=== PATIENT | male | born 1995 | race Caucasian/White ===

== ENCOUNTER 2024-04-11 17:20 | Emergency (ER) | payer SELFPAY ==
[2024-04-11 17:36] VITALS: BP 114/71; PULSE 99; RESP 20; TEMP 37; O2SAT 94; BMI 35.2
--- NOTE | 2024-04-11 19:54 | ED_ITS ---
HPI - Animal Bite 2 General: Chief Complaint: Animal Bite Stated Complaint: Snake Bite Time Seen by Provider: 04/11/24 19:11 Source: patient Mode of arrival: ambulatory Limitations: no limitations History of Present Illness: Patient is a 28-year-old male presenting to the emergency department complaining of bruising to left butt cheek onset a few hours prior to arrival. Patient [place] to noticing the bruising, states he thinks he may have been bitten by something. He denies any pain to the area, however states that when he sits on it he feels a burning tingling sensation that radiates down his proximal right leg. States initially he was feeling dizzy, however this has resolved. No fever, nausea or vomiting, or other symptoms at this time. He denies any trauma to the area. States that he does not know what could have bit him. complaint: animal bite (Possible) Onset (ago): hour(s) Animal: other (Unknown) Location: buttocks Associated symptoms: Deny chills, fever(s) or headache(s) Related Data Previous Rx's Medication Instructions Recorded cephalexin 500 mg capsule 500 mg PO BID 7 days #14 caps 04/11/24 Allergies Allergy/AdvReac Type Severity Reaction Status Date / Time No Known Allergies Allergy Verified 04/11/24 17:47 Review of Systems 2 General: Reports: 10 or more systems reviewed and unremarkable except in HPI and below Const: Denies: fever(s) or chills Card: Denies: chest pain Resp: Denies: dyspnea GI: Denies: abdominal pain, nausea, vomiting or diarrhea Musc: Denies: extremity pain or joint pain Skin/Breast: Reports: skin pain (Burning/tingling) and other (Bruising to right buttock); Denies: rash, skin tenderness or new lesions Neuro: Reports: dizziness; Denies: headache(s) Physical Exam 2 Const: COMMON NORMALS: no acute distress, average body habitus, patient oriented x3, no limitations, healthy appearing, alert and well nourished HENMT: COMMON NORMALS: normocephalic and atraumatic HEAD & SCALP: n ormocephalic and atraumatic Neck/C-Spine: COMMON NORMALS: full ROM, no lymphadenopathy, supple and no meningeal signs Resp: COMMON NORMALS: normal respiratory effort, No use of accessory muscles and clear to auscultation bilaterally AUSCULTATION: clear to auscultation bilaterally Cardio: COMMON NORMALS: regular rate and regular rhythm RATE: regular rate RHYTHM: regular rhythm Extremity: COMMON NORMALS: full ROM and capillary refill normal Neuro: COMMON NORMALS: patient oriented x3 SENSORIUM/ORIENTATION: Yes alert MENINGEAL SIGNS: Yes no meningeal signs Skin: COMMON NORMALS: no rashes or lesions noted, no wounds and turgor normal NARRATIVE SKIN EXAM: Circumferential bruising to right buttock, no evidence of fang montgomery or bite lesion. Mild tenderness to the touch. Does not feel warm. GENERAL SKIN EXAM: no rashes or lesions noted and turgor normal Course 2 Vital Signs: Vital signs: Vital Signs Temperature 98.6 F 04/11/24 17:36 Pulse Rate 99 04/11/24 17:36 Respiratory Rate 20 H 04/11/24 17:36 Blood Pressure 114/71 04/11/24 17:36 Pulse Oximetry 94 04/11/24 17:36 Oxygen Delivery Me thod Room Air 04/11/24 17:36 MDM - Animal Bite Medical Decision Making Patient presented with a lesion to his right buttock that he noticed approximately 3 to 4 hours prior to presenting to the emergency department. He is unknown what caused it, unknown if trauma or animal bite. He has no fever, nausea or vomiting, or other systemic symptoms other than some intermittent dizziness that has since improved. His vitals on arrival were stable. Exam revealed what appeared to be traumatic bruising of the right buttock, there was no active drainage and no sign of things or other bite jammie. Labs were ordered which were all completely normal, and at patient's request we will treat with antibiotics empirically. He is informed to monitor the lesion and return with any new or concerning symptoms. Case discussed with Dr. Lubin who agrees at this time. Lab Data 04/11/24 19:53 04/11/24 19:53 Laboratory Results WBC 10.59 10^3/uL (3.29-11.43) 04/11/24 19:53 RBC 5.34 10^6/uL (3.85-5.65) 04/11/24 19:53 Hgb 14.90 g/dL (11.27-16.99) 04/11/24 19:53 Hct 45.2 % (37-53) 04/11/24 19:53 MCV 84.6 fl (82-101) 04/11/24 19:53 MCH 27.9 pg (27-33) 04/11/24 19:53 MCHC 33.0 g/dL (30-55) 04/11/24 19:53 RDW 12.5 % (12.1-15.1) 04/11/24 19:53 Plt Count 239 10^3/cmm (157-399) 04/11/24 19:53 MPV 10.8 fL (7.4-10.4) H 04/11/24 19:53 Neut % (Auto) 57.1 % 04/11/24 19:53 Lymph % (Auto) 32.2 % 04/11/24 19:53 [place] % (Auto) 8.9 % 04/11/24 19:53 Eos % (Auto) 1.2 % 04/11/24 19:53 Baso % (Auto) 0.3 % 04/11/24 19:53 Neut # (Auto) 6.05 10^3/uL (1.8-7.7) 04/11/24 19:53 Lymph # (Auto) 3.4 10^3/uL (0.8-4.8) 04/11/24 19:53 [place] # (Auto) 0.9 10^3/uL (0.2-0.9) 04/11/24 19:53 Eos # (Auto) 0.1 10^3/uL (0.0-0.8) 04/11/24 19:53 Baso # (Auto) 0.0 10^3/uL (0.0-0.1) 04/11/24 19:53 Nucleated RBC % (auto) 0 % 04/11/24 19:53 Nucleated RBCs # 0.0 /100WBC 04/11/24 19:53 ESR 1 mm/hr (0-10) 04/11/24 19:53 PT 12.40 SECONDS (12.1-14.9) 04/11/24 19:53 INR 0.90 (0.8-1.2) 04/11/24 19:53 APTT 27.3 SECONDS (23.9-36.7) 04/11/24 19:53 Sodium 140 mmol/L (136-145) 04/11/24 19:53 Potassium 4.7 mmol/L (3.5-5.1) 04/11/24 19:53 Chloride 102 mmol/L (98-107) 04/11/24 19:53 Carbon Dioxide 28 mmol/L (22-29) 04/11/24 19:53 Anion Gap 14.7 (5-19) 04/11/24 19:53 BUN 15 mg/dL (6-20) 04/11/24 19:53 Creatinine 0.9 mg/dL (0.7-1.2) 04/11/24 19:53 GFR Calculation 102.0 mL/min (90-130) 04/11/24 19:53 Glucose 98 mg/dL (65-115) 04/11/24 19:53 Calculated Osmolality 291 mOsm/kg (285-295) 04/11/24 19:53 Calcium 9.2 mg/dL (8.5-10.5) 04/11/24 19:53 Total Bilirubin 0.2 mg/dL (0.15-1.2) 04/11/24 19:53 AST 17 U/L (0-40) 04/11/24 19:53 ALT 21 U/L (0-41) 04/11/24 19:53 Alkaline Phosphatase 92 U/L (40-130) 04/11/24 19:53 C-Reactive Protein 3.1 mg/L (0.0-4.9) 04/11/24 19:53 Total Protein 7.1 g/dL (6.6-8.7) 04/11/24 19:53 Albumin 4.6 g/dL (3.5-5.2) 04/11/24 19:53 Globulin 2.5 g/dL (1.3-4.6) 04/11/24 19:53 No radiology studies performed this visit Discharge Plan Discharge Patient Disposition: Home Clinical Impression: Abnormal bruising Condition: Stable Prescriptions: New cephalexin 500 mg capsule 500 mg PO BID 7 Days Qty: 14 0RF Discharge Orders: Discharge ED (Routine); Ordered 04/11/24 Ordered By: Torrey Cook Discharge Diet: Usual diet Discharge Activity: Increase activity as tolerated Patient Instructions: Pain Management Activity Restrictions/Additional Instructions: Take antibiotics as prescribed. Monitor lesion for any changing, follow-up with primary care with any worsening. If you have any new or concerning complaints please return to the emergency department. Coding Level of Care Code ED Reliability Manager for Herminia Delatorre
[2024-04-11 19:56] LABS: Erythrocyte Sedimentation Rate 1 mm/hr (0-10)
[2024-04-11 19:57] LABS: Basophils % 0.3 %; Eosinophils # 0.1 10^3/uL (0.0-0.8); Eosinophils % 1.2 %; Hematocrit 45.2 % (37-53); Lymphocytes # 3.4 10^3/uL (0.8-4.8); Lymphocytes % 32.2 %; Mean Corpuscular Hemoglobin 27.9 pg (27-33); Mean Corpuscular Volume 84.6 fl (82-101); Mean Platelet Volume 10.8 fL (7.4-10.4); Monocytes # 0.9 10^3/uL (0.2-0.9); Monocytes % 8.9 %; Neutrophils # 6.05 10^3/uL (1.8-7.7); Neutrophils % 57.1 %; Nucleated Red Blood Cells % 0 %; Platelet Count 239 10^3/cmm (157-399); Red Blood Count 5.34 10^6/uL (3.85-5.65); Red Cell Distribution Width 12.5 % (12.1-15.1); White Blood Count 10.59 10^3/uL (3.29-11.43)
[2024-04-11 20:10] LABS: Partial Thromboplastin Time 27.3 SECONDS (23.9-36.7)
[2024-04-11 20:14] LABS: Alanine Aminotransferase 21 U/L (0-41); Albumin Level 4.6 g/dL (3.5-5.2); Alkaline Phosphatase 92 U/L (40-130); Anion Gap 14.7 (5-19); Aspartate Amino Transferase 17 U/L (0-40); Blood Urea Nitrogen 15 mg/dL (6-20); C Reactive Protein 3.1 mg/L (0.0-4.9); Calcium 9.2 mg/dL (8.5-10.5); Carbon Dioxide 28 mmol/L (22-29); Chloride 102 mmol/L (98-107); Creatinine Clr Calc Pharmacy 164.9017; Globulin 2.5 g/dL (1.3-4.6); Glucose 98 mg/dL (65-115); Osmolality Calculated 291 mOsm/kg (285-295); Potassium 4.7 mmol/L (3.5-5.1); Sodium 140 mmol/L (136-145); Total Bilirubin 0.2 mg/dL (0.15-1.2); Total Protein 7.1 g/dL (6.6-8.7)
[2024-04-11 20:59] VITALS: BP 144/84; PULSE 69; RESP 18; O2SAT 97
[2024-04-11 21:06] VITALS: PULSE 69; RESP 18; O2SAT 97
== END 2024-04-11 21:05 | disposition home or self-care (01) ==
PROVIDERS: Emergency Provider Physician Assistant
DX: S30.0XXA Contusion of lower back and pelvis, initial encounter (principal); X58.XXXA Exposure to other specified factors, initial encounter; Y92.828 Other wilderness area as the place of occurrence of the external cause
CPT/HCPCS: 36415; 80053; 85025; 85610; 85651; 85730; 86140; 99283